=== PATIENT | male | born 1945 | race Caucasian/White ===

== ENCOUNTER 2023-10-15 11:10 | Outpatient (CLI) | payer MEDICARE ==
[2023-10-15 16:04] LABS: CALCIUM 9.9 mg/dL (8.5-10.3); POTASSIUM 4.1 mmol/L (3.5-4.5)
== END 2023-10-15 11:11 | disposition home or self-care (01) ==
LOC: LAB.S 11:10
PROVIDERS: ATTEND Internal Medicine
DX: I50.9 Heart failure, unspecified (principal)
CPT/HCPCS: 36415; 80048; 83880